=== PATIENT | female | born 1930 | race African-American/Black ===

== ENCOUNTER 2019-11-17 16:17 | Inpatient (IN) | payer MEDICARE, MEDICAID ==
[~2019-11-17] VITALS: Ht 160 cm; Wt 88.0 kg
[~2019-11-17 16:17] MED LIST: ASPI-1158 PO; CLON0.2T PO; DILT240C91 PO; DIOVAN; ESOM40CA PO; HYDR-523 PO; METO100T16 PO; NIFE30TA94 PO; OMEP40CA12 PO; ONDA4TAB5 PO; SUCR1TAB30 PO; TIMO5SOL8 OP; VALS160T28 PO; [UNRECOGNIZED DRUG - REMARK]
[2019-11-17] MEDS ORDERED: BACLOFEN (16:20)
[2019-11-18 00:28] LABS: BASOPHILS % 1.3 % (0.0-2.0); EOSINOPHILS % 0.8 % (0.0-5.0); HEMOGLOBIN. 11.6 g/dL (12.0-16.0); LYMPHOCYTES % 30.3 % (20.0-50.0); MEAN CORPUSCULAR HEMOGLOBIN 29.5 pg (28.0-32.0); MEAN CORPUSCULAR VOLUME 88.9 fL (81.0-99.0); MEAN PLATELET VOLUME 8.4 fl (7.4-10.4); MONOCYTES % 6.9 % (2.0-8.0); NEUTROPHILS % 60.7 % (40.0-76.0); PLATELET 261 x1000/uL (130-400); RED BLOOD CELL COUNT 3.94 mill/uL (4.2-5.4); RED CELL DISTRIBUTION WIDTH 15.6 % (11.6-14.6)
[2019-11-18 00:40] LABS: CHLORIDE 114 mEq/L (98-107)
[2019-11-18 00:51] LABS: CLARITY URINE CLOUDY (CLEAR); COLOR URINE YELLOW (YELLOW); KETONES URINE NEGATIVE (NEGATIVE); LEUKOCYTE ESTERASE URINE 3+ (NEGATIVE); NITRITE URINE POSITIVE (NEGATIVE); OCCULT BLOOD URINE NEGATIVE (NEGATIVE); PH URINE 5.5 (4.5-8.0); PROTEIN URINE NEGATIVE (NEGATIVE); SPECIFIC GRAVITY URINE 1.011 (1.005-1.030); UROBILINOGEN URINE 0.2 E.U./dL (0.2-1.0)
[2019-11-18 00:52] LABS: ETHANOL BLOOD < 10 mg/dL
[2019-11-18 01:06] LABS: *AMPHETAMINES SCREEN URINE NEGATIVE (NEGATIVE); *BARBITURATES SCREEN URINE NEGATIVE (NEGATIVE); *BENZODIAZEPINES SCREEN URINE NEGATIVE (NEGATIVE); *COCAINE SCREEN URINE NEGATIVE (NEGATIVE)
[2019-11-18 01:07] LABS: CANNABINOID URINE SCREEN NEGATIVE (NEGATIVE); METHADONE URINE SCREEN NEGATIVE (NEGATIVE); OPIATES URINE SCREEN NEGATIVE (NEGATIVE); PHENCYCLIDINE URINE SCREEN NEGATIVE (NEGATIVE)
[2019-11-18] MEDS: CEFTRIAXONE 1 G PREMIX 50 ML IV NR ×2 (04:20→04:37)
[2019-11-18] MEDS: SODIUM CHLORIDE 0.9% 1,000 ML IV SCH ×2 (11:42→13:15)
[2019-11-18] MEDS ORDERED: ACETAMINOPHEN 325MG TABLET PO PRN (11:45)
[2019-11-18] MEDS: ASPIRIN 81MG EC TABLET PO SCH (12:00)
[2019-11-18] MEDS ORDERED: AZITHROMYCIN 500 MG in DEXT 5% WATER 250 ML IV SCH (12:00)
[2019-11-18] MEDS ORDERED: DEXTROSE 50% WATER 50ML SYRINGE IV PRN (12:00)
[2019-11-18] MEDS: CLONIDINE 0.2MG TABLET PO SCH ×2 (12:00→17:00)
[2019-11-18] MEDS: SUCRALFATE 1G TABLET PO SCH ×2 (13:00→17:00)
[2019-11-18] MEDS: BLOOD SUGAR DIAGNOSTIC STRIP TEST SCH ×3 (13:15→21:40)
[2019-11-18] MEDS: INSULIN LISPRO 100 UNITS/ML SUBCUT SCH ×3 (13:20→21:00)
[2019-11-18] MEDS ORDERED: hydralazine (15:07)
[2019-11-18] MEDS ORDERED: PANT20TA3 PO (15:07)
[2019-11-18] MEDS ORDERED: OXYB5TAB17 PO (15:07)
[2019-11-18] MEDS ORDERED: LOSA50TA41 PO (15:07)
[2019-11-18] MEDS ORDERED: LIDO35.44 TP (15:07)
[2019-11-18] MEDS ORDERED: DICL100G31 TP (15:07)
[2019-11-18] MEDS ORDERED: CLONIDINE 0.1MG TABLET PO PRN (18:30)
[2019-11-18] MEDS ORDERED: LEVOFLOXACIN 500MG PREMIX 100ML IV NR (19:00)
[2019-11-18 20:00] VITALS: BP 140/72
[2019-11-18] MEDS: HEPARIN 5000 UNITS/ML VIAL SUBCUT SCH (21:38)
[2019-11-18] MEDS: METOPROLOL TARTRATE 100MG TABLET PO SCH (21:39)
[2019-11-18 22:32] VITALS: BP 140/72
[2019-11-19] VITALS (12 sets, daily range): BP systolic 112–194; BP diastolic 42–89
[2019-11-19] MEDS ORDERED: CEFTRIAXONE 1 G PREMIX 50 ML IV SCH (01:00)
[2019-11-19] MEDS: ONDANSETRON HCL 4MG/2ML INJ IV PRN ×2 (03:48→11:16)
[2019-11-19] MEDS: BLOOD SUGAR DIAGNOSTIC STRIP TEST SCH ×4 (06:31→20:57)
[2019-11-19] MEDS: SUCRALFATE 1G TABLET PO SCH ×3 (06:31→16:32)
[2019-11-19 07:05] LABS: BASOPHILS % 0.6 % (0.0-2.0); EOSINOPHILS % 0.5 % (0.0-5.0); HEMATOCRIT. 33.3 % (36.0-48.0); HEMOGLOBIN. 11.2 g/dL (12.0-16.0); LYMPHOCYTES % 26.1 % (20.0-50.0); MEAN CORPUSCULAR HEMOGLOBIN 29.5 pg (28.0-32.0); MEAN CORPUSCULAR VOLUME 87.8 fL (81.0-99.0); MEAN PLATELET VOLUME 7.9 fl (7.4-10.4); MONOCYTES % 5.2 % (2.0-8.0); NEUTROPHILS % 67.6 % (40.0-76.0); PLATELET 271 x1000/uL (130-400); RED BLOOD CELL COUNT 3.79 mill/uL (4.2-5.4); RED CELL DISTRIBUTION WIDTH 15.5 % (11.6-14.6)
[2019-11-19 07:18] LABS: CHLORIDE 109 mEq/L (98-107)
[2019-11-19] MEDS: INSULIN LISPRO 100 UNITS/ML SUBCUT SCH ×4 (07:20→21:00)
[2019-11-19] MEDS: CEFTRIAXONE 1 G PREMIX 50 ML IV SCH (08:36)
[2019-11-19] MEDS: HEPARIN 5000 UNITS/ML VIAL SUBCUT SCH ×2 (08:36→20:57)
[2019-11-19] MEDS: ASPIRIN 81MG EC TABLET PO SCH (08:37)
[2019-11-19] MEDS: METOPROLOL TARTRATE 100MG TABLET PO SCH ×2 (08:37→20:57)
[2019-11-19] MEDS: CLONIDINE 0.2MG TABLET PO SCH ×2 (08:47→16:32)
[2019-11-19 17:38] LABS: CREATINE KINASE 128 IU/L (26-192)
[2019-11-19 18:17] LABS: VITAMIN B12 SERUM 247 pg/mL (211-911)
[2019-11-19 18:20] LABS: FOLIC ACID (FOLATE) SERUM > 20.00 ng/mL (>5.38)
[2019-11-19] MEDS ORDERED: LEVOFLOXACIN 250MG PREMIX 50 ML IV SCH (19:00)
[2019-11-20] VITALS (11 sets, daily range): BP systolic 143–189; BP diastolic 58–93
[2019-11-20] MEDS: SUCRALFATE 1G TABLET PO SCH ×3 (06:25→18:03)
[2019-11-20] MEDS: BLOOD SUGAR DIAGNOSTIC STRIP TEST SCH ×2 (06:26→12:14)
[2019-11-20 06:31] LABS: BASOPHILS % 0.7 % (0.0-2.0); HEMATOCRIT. 33.6 % (36.0-48.0); HEMOGLOBIN. 11.2 g/dL (12.0-16.0); LYMPHOCYTES % 39.6 % (20.0-50.0); MEAN CORPUSCULAR HEMOGLOBIN 29.6 pg (28.0-32.0); MEAN CORPUSCULAR VOLUME 88.8 fL (81.0-99.0); MEAN PLATELET VOLUME 8.2 fl (7.4-10.4); MONOCYTES % 7.3 % (2.0-8.0); NEUTROPHILS % 51.4 % (40.0-76.0); PLATELET 263 x1000/uL (130-400); RED BLOOD CELL COUNT 3.78 mill/uL (4.2-5.4); RED CELL DISTRIBUTION WIDTH 15.6 % (11.6-14.6)
[2019-11-20 06:35] LABS: CHLORIDE 109 mEq/L (98-107)
[2019-11-20] MEDS: INSULIN LISPRO 100 UNITS/ML SUBCUT SCH ×2 (07:20→12:14)
[2019-11-20] MEDS: ONDANSETRON HCL 4MG/2ML INJ IV PRN (09:07)
[2019-11-20] MEDS: HEPARIN 5000 UNITS/ML VIAL SUBCUT SCH (09:10)
[2019-11-20] MEDS: CLONIDINE 0.2MG TABLET PO SCH ×2 (09:11→18:06)
[2019-11-20] MEDS: ASPIRIN 81MG EC TABLET PO SCH (09:11)
[2019-11-20] MEDS: METOPROLOL TARTRATE 100MG TABLET PO SCH ×2 (09:12→21:23)
[2019-11-20] MEDS: CEFTRIAXONE 1 G PREMIX 50 ML IV SCH (09:13)
[2019-11-20] MEDS: AMLODIPINE 10MG TABLET PO SCH (13:00)
[2019-11-20] MEDS: LOSARTAN POTASSIUM 50 MG TABLET PO SCH (13:01)
[2019-11-20] MEDS: GABAPENTIN 100MG CAPSULE PO SCH ×2 (13:06→21:21)
[2019-11-20 16:31] LABS: T4 FREE 1.05 ng/dL (0.76-1.46)
[2019-11-20] MEDS: CYANOCOBALAMIN 1000MCG/ML VIAL IM SCH (17:00)
[2019-11-20] MEDS ORDERED: TRAZODONE HCL 50MG TABLET PO PRN (18:15)
[2019-11-21] VITALS (8 sets, daily range): BP systolic 114–176; BP diastolic 49–70
[2019-11-21] MEDS: GABAPENTIN 100MG CAPSULE PO SCH ×2 (06:26→14:15)
[2019-11-21] MEDS: SUCRALFATE 1G TABLET PO SCH ×4 (06:26→18:00)
[2019-11-21] MEDS: CYANOCOBALAMIN 1000MCG/ML VIAL IM SCH (09:00)
[2019-11-21] MEDS ORDERED: ENOXAPARIN 40MG/0.4ML SYR SUBCUT SCH (09:00)
[2019-11-21] MEDS ORDERED: MULTIVITAMINS,THER W-MINERALS TABLET PO SCH (09:00)
[2019-11-21] MEDS: CLONIDINE 0.2MG TABLET PO SCH ×2 (09:30→17:00)
[2019-11-21] MEDS: LOSARTAN POTASSIUM 50 MG TABLET PO SCH (09:30)
[2019-11-21] MEDS: ASPIRIN 81MG EC TABLET PO SCH (09:31)
[2019-11-21] MEDS: AMLODIPINE 10MG TABLET PO SCH (09:32)
[2019-11-21] MEDS: CEFTRIAXONE 1 G PREMIX 50 ML IV SCH (09:33)
[2019-11-21] MEDS: METOPROLOL TARTRATE 100MG TABLET PO SCH (09:34)
[2019-11-21] MEDS ORDERED: HYDRALAZINE HCL 50MG TABLET PO SCH (14:00)
[2019-11-21 16:24] LABS: BASOPHILS % 1.7 % (0.0-2.0); EOSINOPHILS % 2.2 % (0.0-5.0); HEMATOCRIT. 33.5 % (36.0-48.0); HEMOGLOBIN. 11.3 g/dL (12.0-16.0); LYMPHOCYTES % 37.4 % (20.0-50.0); MEAN CORPUSCULAR HEMOGLOBIN 29.7 pg (28.0-32.0); MEAN CORPUSCULAR VOLUME 88.4 fL (81.0-99.0); MEAN PLATELET VOLUME 8.5 fl (7.4-10.4); NEUTROPHILS % 51.7 % (40.0-76.0); RED BLOOD CELL COUNT 3.79 mill/uL (4.2-5.4); RED CELL DISTRIBUTION WIDTH 15.5 % (11.6-14.6)
[2019-11-21 16:32] LABS: CHLORIDE 108 mEq/L (98-107)
[2019-11-21 17:16] LABS: PLATELET 246 x1000/uL (130-400)
[2019-11-27 04:10] LABS: 25-HYDROXY VITAMIN D3 25 ng/mL (.)
[2019-12-03] MEDS ORDERED: CYANOCOBALAMIN 1000MCG/ML VIAL IM SCH (09:00)
== END 2019-11-21 18:25 | DRG 91 ==
LOC: ER 16:17 → 3WST 11-18 00:34 → EDBEDREQDT 11-18 00:38 → EDBEDREQTM 11-18 00:38 → EDBEDREQ 11-18 00:38 → ENRESERV 11-18 14:10 → CANRESERV 11-18 14:10 → ENRESERV 11-18 15:47 → 6WST 11-21 12:43
PROVIDERS: ADMIT Internal Medicine; ATTEND Internal Medicine
PROC: 4B02XSZ Measurement of Cardiac Pacemaker, External Approach (ICD-10-PCS; principal; 2019-11-19)
DX: G92 Toxic encephalopathy (principal); J18.9 Pneumonia, unspecified organism; G82.50 Quadriplegia, unspecified; N39.0 Urinary tract infection, site not specified; D64.9 Anemia, unspecified; E87.8 Other disorders of electrolyte and fluid balance, not elsewhere classified; Z95.0 Presence of cardiac pacemaker; K21.9 Gastro-esophageal reflux disease without esophagitis; B96.89 Other specified bacterial agents as the cause of diseases classified elsewhere; E11.42 Type 2 diabetes mellitus with diabetic polyneuropathy; G89.29 Other chronic pain; M79.605 Pain in left leg; M48.02 Spinal stenosis, cervical region; R53.81 Other malaise; I11.9 Hypertensive heart disease without heart failure; M79.604 Pain in right leg; Z96.652 Presence of left artificial knee joint; E78.00 Pure hypercholesterolemia, unspecified; I49.5 Sick sinus syndrome; M48.061 Spinal stenosis, lumbar region without neurogenic claudication; E53.8 Deficiency of other specified B group vitamins; Z88.5 Allergy status to narcotic agent; Z79.899 Other long term (current) drug therapy; Z90.710 Acquired absence of both cervix and uterus; Z90.49 Acquired absence of other specified parts of digestive tract; Z88.1 Allergy status to other antibiotic agents
CPT/HCPCS: 36415; 71045; 72128; 72131; 80053; 80305; 80307; 80320; 80329; 81003; 82140; 82306; 82550; 82607; 82746; 82962; 83036; 83605; 83735; 83880; 84439; 84443; 84481; 84484; 85025; 87077; 87186; 92523; 92610; 93005; 93306; 93970; 93971; 97162; 97166; 97530; 97535; 99285; J0456; J0696; J1644; J1956; J2405; J7060; G0480

== ENCOUNTER 2019-11-21 18:30 | Inpatient (IN) | payer MEDICARE, MEDICAID ==
[~2019-11-21] VITALS: Ht 160 cm; Wt 86.2 kg
[~2019-11-21 18:30] MED LIST changes: -ASPI-1158 PO; +BACLOFEN; +DICL100G31 TP; -DILT240C91 PO; -DIOVAN; -ESOM40CA PO; -HYDR-523 PO; +LIDO35.44 TP; +LOSA50TA41 PO; -METO100T16 PO; -OMEP40CA12 PO; -ONDA4TAB5 PO; +OXYB5TAB17 PO; +PANT20TA3 PO; -SUCR1TAB30 PO; -VALS160T28 PO; +hydralazine
[2019-11-21] MEDS ORDERED: CLONIDINE 0.1MG TABLET PO PRN (19:30)
[2019-11-21 20:00] VITALS: BP 130/41
[2019-11-21] MEDS: METOPROLOL TARTRATE 100MG TABLET PO SCH (20:59)
[2019-11-21] MEDS ORDERED: CLONIDINE 0.2MG TABLET PO SCH (21:00)
[2019-11-21] MEDS: GABAPENTIN 100MG CAPSULE PO SCH (21:02)
[2019-11-21] MEDS: HYDRALAZINE HCL 50MG TABLET PO SCH (21:02)
[2019-11-21] MEDS: TRAZODONE HCL 50MG TABLET PO PRN (21:08)
[2019-11-22] MEDS: ACETAMINOPHEN 325MG TABLET PO PRN ×3 (03:58→21:32)
[2019-11-22] MEDS: GABAPENTIN 100MG CAPSULE PO SCH ×3 (06:03→21:32)
[2019-11-22] MEDS: HYDRALAZINE HCL 50MG TABLET PO SCH (06:03)
[2019-11-22 07:17] LABS: BASOPHILS % 1.1 % (0.0-2.0); EOSINOPHILS % 2.9 % (0.0-5.0); HEMATOCRIT. 37.9 % (36.0-48.0); HEMOGLOBIN. 12.7 g/dL (12.0-16.0); LYMPHOCYTES % 38.1 % (20.0-50.0); MEAN CORPUSCULAR HEMOGLOBIN 29.4 pg (28.0-32.0); MEAN PLATELET VOLUME 8.3 fl (7.4-10.4); MONOCYTES % 6.5 % (2.0-8.0); NEUTROPHILS % 51.4 % (40.0-76.0); PLATELET 283 x1000/uL (130-400); RED BLOOD CELL COUNT 4.31 mill/uL (4.2-5.4); RED CELL DISTRIBUTION WIDTH 15.5 % (11.6-14.6)
[2019-11-22 07:23] LABS: CHLORIDE 108 mEq/L (98-107)
[2019-11-22 08:00] VITALS: BP 149/56
[2019-11-22] MEDS: ENOXAPARIN 40MG/0.4ML SYR SUBCUT SCH (08:14)
[2019-11-22] MEDS: CYANOCOBALAMIN 1000MCG TABLET PO SCH (08:15)
[2019-11-22] MEDS: LOSARTAN POTASSIUM 50 MG TABLET PO SCH (08:15)
[2019-11-22] MEDS: MULTIVITAMINS,THER W-MINERALS TABLET PO SCH (08:15)
[2019-11-22] MEDS: AMLODIPINE 10MG TABLET PO SCH (08:15)
[2019-11-22] MEDS: ASPIRIN 81MG EC TABLET PO SCH (08:15)
[2019-11-22] MEDS: SUCRALFATE 1G TABLET PO SCH ×3 (08:16→16:19)
[2019-11-22] MEDS: METOPROLOL TARTRATE 100MG TABLET PO SCH (08:16)
[2019-11-22] MEDS ORDERED: CEFTRIAXONE 1 G PREMIX 50 ML IV SCH (09:00)
[2019-11-22] MEDS ORDERED: CLONIDINE 0.2MG TABLET PO SCH (09:00)
[2019-11-22 10:18] VITALS: BP_SYST 124; BP_SYST 149; BP_SYST 82; BP_DIAS 40; BP_DIAS 56; BP_DIAS 57
[2019-11-22] MEDS ORDERED: SODIUM CHLORIDE 0.9% 200 ML IV NR (10:30)
[2019-11-22 10:45] VITALS: BP_SYST 69; BP_SYST 72; BP_SYST 79; BP_DIAS 39; BP_DIAS 43
[2019-11-22 11:08] VITALS: BP 112/58
[2019-11-22] MEDS ORDERED: GABAPENTIN 100MG CAPSULE PO SCH (14:00)
[2019-11-22] MEDS ORDERED: GABAPENTIN 100MG CAPSULE PO NR (14:21)
[2019-11-22] MEDS: MEROPENEM 500 MG in SODIUM CHLORIDE 0.9% 50 ML IV SCH (14:55)
[2019-11-22] MEDS: CLONIDINE 0.1MG TABLET PO SCH (16:19)
[2019-11-22] MEDS: METOPROLOL TARTRATE 50MG TABLET PO SCH (21:27)
[2019-11-22] MEDS: TRAZODONE HCL 50MG TABLET PO PRN (21:33)
[2019-11-22 21:59] VITALS: BP 164/56
[2019-11-22] MEDS: TIMOLOL MALEATE 0.5% OPHTH DROPS 5ML EACHEYE SCH (22:35)
[2019-11-23] MEDS: MEROPENEM 500 MG in SODIUM CHLORIDE 0.9% 50 ML IV SCH ×2 (01:34→14:08)
[2019-11-23] MEDS: GABAPENTIN 100MG CAPSULE PO SCH ×3 (05:45→22:10)
[2019-11-23] MEDS: ACETAMINOPHEN 325MG TABLET PO PRN (05:56)
[2019-11-23 06:48] LABS: CHLORIDE 110 mEq/L (98-107)
[2019-11-23 06:51] LABS: BASOPHILS % 1.2 % (0.0-2.0); EOSINOPHILS % 3.3 % (0.0-5.0); HEMATOCRIT. 35.6 % (36.0-48.0); HEMOGLOBIN. 11.9 g/dL (12.0-16.0); LYMPHOCYTES % 37.9 % (20.0-50.0); MEAN CORPUSCULAR HEMOGLOBIN 29.3 pg (28.0-32.0); MEAN CORPUSCULAR VOLUME 87.6 fL (81.0-99.0); MEAN PLATELET VOLUME 8.5 fl (7.4-10.4); MONOCYTES % 7.7 % (2.0-8.0); NEUTROPHILS % 49.9 % (40.0-76.0); PLATELET 293 x1000/uL (130-400); RED BLOOD CELL COUNT 4.07 mill/uL (4.2-5.4); RED CELL DISTRIBUTION WIDTH 15.6 % (11.6-14.6)
[2019-11-23 06:56] LABS: PHOSPHORUS 4.2 mg/dL (2.5-4.9)
[2019-11-23 06:57] LABS: TOTAL IRON BINDING CAPACITY 255 ug/dL (250-450)
[2019-11-23 07:07] LABS: FERRITIN 216 ng/mL (10-291)
[2019-11-23 07:08] LABS: FOLIC ACID (FOLATE) SERUM >20 ng/mL ng/mL (>5.38)
[2019-11-23 07:20] LABS: VITAMIN B12 SERUM 463 pg/mL (211-911)
[2019-11-23 08:00] VITALS: BP 159/57
[2019-11-23] MEDS: CLONIDINE 0.1MG TABLET PO SCH ×2 (09:34→16:16)
[2019-11-23] MEDS: SUCRALFATE 1G TABLET PO SCH ×3 (09:34→16:16)
[2019-11-23] MEDS: CYANOCOBALAMIN 1000MCG TABLET PO SCH (09:34)
[2019-11-23] MEDS: ENOXAPARIN 40MG/0.4ML SYR SUBCUT SCH (09:35)
[2019-11-23] MEDS: METOPROLOL TARTRATE 50MG TABLET PO SCH (09:35)
[2019-11-23] MEDS: ASPIRIN 81MG EC TABLET PO SCH (09:35)
[2019-11-23] MEDS: MULTIVITAMINS,THER W-MINERALS TABLET PO SCH (09:35)
[2019-11-23] MEDS: LOSARTAN POTASSIUM 50 MG TABLET PO SCH (09:35)
[2019-11-23] MEDS: AMLODIPINE 10MG TABLET PO SCH (09:35)
[2019-11-23] MEDS: TIMOLOL MALEATE 0.5% OPHTH DROPS 5ML EACHEYE SCH ×2 (09:39→22:11)
[2019-11-23 14:15] VITALS: BP 146/57
[2019-11-23] MEDS: TRAMADOL 50MG TABLET PO PRN (16:16)
[2019-11-23 20:00] VITALS: BP 172/64
[2019-11-23] MEDS: HYDRALAZINE HCL 50MG TABLET PO SCH (22:10)
[2019-11-23] MEDS: METOPROLOL TARTRATE 25MG TABLET PO SCH (22:11)
[2019-11-24] MEDS: TRAZODONE HCL 50MG TABLET PO PRN (00:09)
[2019-11-24] MEDS: MEROPENEM 500 MG in SODIUM CHLORIDE 0.9% 50 ML IV SCH ×2 (02:28→15:38)
[2019-11-24] MEDS: ACETAMINOPHEN 325MG TABLET PO PRN ×3 (03:12→17:38)
[2019-11-24] MEDS: HYDRALAZINE HCL 50MG TABLET PO SCH ×3 (06:00→22:00)
[2019-11-24] MEDS: GABAPENTIN 100MG CAPSULE PO SCH ×3 (06:38→22:16)
[2019-11-24 08:00] VITALS: BP 142/60
[2019-11-24] MEDS: ENOXAPARIN 40MG/0.4ML SYR SUBCUT SCH (08:58)
[2019-11-24] MEDS: CYANOCOBALAMIN 1000MCG/ML VIAL IM SCH (08:58)
[2019-11-24] MEDS: AMLODIPINE 10MG TABLET PO SCH (08:59)
[2019-11-24] MEDS: SUCRALFATE 1G TABLET PO SCH ×3 (08:59→17:00)
[2019-11-24] MEDS: CLONIDINE 0.1MG TABLET PO SCH ×2 (08:59→17:00)
[2019-11-24] MEDS: METOPROLOL TARTRATE 25MG TABLET PO SCH ×2 (08:59→20:55)
[2019-11-24] MEDS: MULTIVITAMINS,THER W-MINERALS TABLET PO SCH (08:59)
[2019-11-24] MEDS: LOSARTAN POTASSIUM 50 MG TABLET PO SCH (08:59)
[2019-11-24] MEDS: ASPIRIN 81MG EC TABLET PO SCH (08:59)
[2019-11-24] MEDS: TIMOLOL MALEATE 0.5% OPHTH DROPS 5ML EACHEYE SCH ×2 (09:00→21:00)
[2019-11-24] MEDS: ONDANSETRON HCL 4MG/2ML INJ IV PRN (12:10)
[2019-11-24] MEDS ORDERED: IPRATROPIUM/ALBUTEROL 0.5-3(2.5)MG/3ML NEB HHN PRN (16:45)
[2019-11-24 20:00] VITALS: BP_SYST 131; BP_SYST 143; BP_DIAS 59; BP_DIAS 66
[2019-11-24] MEDS: TRAZODONE HCL 50MG TABLET PO SCH (20:56)
[2019-11-25] MEDS: MEROPENEM 500 MG in SODIUM CHLORIDE 0.9% 50 ML IV SCH ×2 (02:26→13:37)
[2019-11-25] MEDS: GABAPENTIN 100MG CAPSULE PO SCH ×3 (05:41→21:30)
[2019-11-25] MEDS: HYDRALAZINE HCL 50MG TABLET PO SCH ×3 (05:46→21:30)
[2019-11-25 06:46] LABS: CHLORIDE 110 mEq/L (98-107)
[2019-11-25 06:51] LABS: EOSINOPHILS % 1.9 % (0.0-5.0); HEMATOCRIT. 32.1 % (36.0-48.0); HEMOGLOBIN. 10.7 g/dL (12.0-16.0); LYMPHOCYTES % 39.2 % (20.0-50.0); MEAN CORPUSCULAR HEMOGLOBIN 29.6 pg (28.0-32.0); MEAN CORPUSCULAR VOLUME 88.6 fL (81.0-99.0); MEAN PLATELET VOLUME 8.1 fl (7.4-10.4); MONOCYTES % 8.2 % (2.0-8.0); NEUTROPHILS % 49.7 % (40.0-76.0); PLATELET 243 x1000/uL (130-400); RED BLOOD CELL COUNT 3.62 mill/uL (4.2-5.4); RED CELL DISTRIBUTION WIDTH 15.5 % (11.6-14.6)
[2019-11-25] MEDS: METOPROLOL TARTRATE 25MG TABLET PO SCH ×2 (08:01→21:29)
[2019-11-25] MEDS: ASPIRIN 81MG EC TABLET PO SCH (08:01)
[2019-11-25] MEDS: LOSARTAN POTASSIUM 50 MG TABLET PO SCH (08:01)
[2019-11-25] MEDS: MULTIVITAMINS,THER W-MINERALS TABLET PO SCH (08:01)
[2019-11-25] MEDS: AMLODIPINE 10MG TABLET PO SCH (08:02)
[2019-11-25] MEDS: CLONIDINE 0.1MG TABLET PO SCH ×2 (08:02→17:18)
[2019-11-25] MEDS: CYANOCOBALAMIN 1000MCG/ML VIAL IM SCH (08:02)
[2019-11-25] MEDS: SUCRALFATE 1G TABLET PO SCH ×3 (08:02→16:28)
[2019-11-25] MEDS: ENOXAPARIN 40MG/0.4ML SYR SUBCUT SCH (08:02)
[2019-11-25] MEDS: TIMOLOL MALEATE 0.5% OPHTH DROPS 5ML EACHEYE SCH ×2 (08:03→21:31)
[2019-11-25 08:15] VITALS: BP 156/56
[2019-11-25 09:00] VITALS: BP_SYST 135; BP_SYST 137; BP_SYST 146; BP_DIAS 55; BP_DIAS 60; BP_DIAS 62
[2019-11-25] MEDS: TRAMADOL 50MG TABLET PO PRN (16:29)
[2019-11-25 20:00] VITALS: BP 126/50
[2019-11-25] MEDS: TRAZODONE HCL 50MG TABLET PO SCH (21:29)
[2019-11-26] MEDS: MEROPENEM 500 MG in SODIUM CHLORIDE 0.9% 50 ML IV SCH ×2 (03:05→13:06)
[2019-11-26] MEDS: TRAMADOL 50MG TABLET PO PRN (03:06)
[2019-11-26] MEDS: GABAPENTIN 100MG CAPSULE PO SCH ×2 (06:15→13:05)
[2019-11-26] MEDS: ACETAMINOPHEN 325MG TABLET PO PRN (06:15)
[2019-11-26] MEDS: HYDRALAZINE HCL 50MG TABLET PO SCH ×3 (06:16→21:10)
[2019-11-26 08:00] VITALS: BP 124/47
[2019-11-26] MEDS: TIMOLOL MALEATE 0.5% OPHTH DROPS 5ML EACHEYE SCH ×2 (08:11→21:10)
[2019-11-26] MEDS: LOSARTAN POTASSIUM 50 MG TABLET PO SCH (08:11)
[2019-11-26] MEDS: MULTIVITAMINS,THER W-MINERALS TABLET PO SCH (08:11)
[2019-11-26] MEDS: SUCRALFATE 1G TABLET PO SCH ×3 (08:11→17:23)
[2019-11-26] MEDS: ASPIRIN 81MG EC TABLET PO SCH (08:12)
[2019-11-26] MEDS: CLONIDINE 0.1MG TABLET PO SCH ×2 (08:12→17:23)
[2019-11-26] MEDS: AMLODIPINE 10MG TABLET PO SCH (08:12)
[2019-11-26] MEDS: CYANOCOBALAMIN 1000MCG/ML VIAL IM SCH (08:12)
[2019-11-26] MEDS: METOPROLOL TARTRATE 25MG TABLET PO SCH ×2 (08:12→21:10)
[2019-11-26] MEDS: ENOXAPARIN 40MG/0.4ML SYR SUBCUT SCH (08:13)
[2019-11-26] MEDS: ONDANSETRON HCL 4MG/2ML INJ IV PRN (09:34)
[2019-11-26 20:00] VITALS: BP 136/49
[2019-11-26] MEDS: TRAZODONE HCL 50MG TABLET PO PRN (21:09)
[2019-11-27] MEDS: TRAMADOL 50MG TABLET PO PRN (02:28)
[2019-11-27] MEDS: ACETAMINOPHEN 325MG TABLET PO PRN ×3 (04:49→23:02)
[2019-11-27 06:31] LABS: CHLORIDE 109 mEq/L (98-107)
[2019-11-27 06:33] LABS: BASOPHILS % 0.7 % (0.0-2.0); EOSINOPHILS % 2.5 % (0.0-5.0); HEMATOCRIT. 30.8 % (36.0-48.0); HEMOGLOBIN. 10.3 g/dL (12.0-16.0); LYMPHOCYTES % 30.6 % (20.0-50.0); MEAN CORPUSCULAR HEMOGLOBIN 29.7 pg (28.0-32.0); MEAN CORPUSCULAR VOLUME 88.5 fL (81.0-99.0); MEAN PLATELET VOLUME 7.9 fl (7.4-10.4); MONOCYTES % 7.5 % (2.0-8.0); NEUTROPHILS % 58.7 % (40.0-76.0); PLATELET 254 x1000/uL (130-400); RED BLOOD CELL COUNT 3.48 mill/uL (4.2-5.4); RED CELL DISTRIBUTION WIDTH 15.9 % (11.6-14.6)
[2019-11-27] MEDS: HYDRALAZINE HCL 50MG TABLET PO SCH ×3 (06:33→21:16)
[2019-11-27 08:14] VITALS: BP 114/41
[2019-11-27] MEDS: AMLODIPINE 10MG TABLET PO SCH (09:00)
[2019-11-27] MEDS: CLONIDINE 0.1MG TABLET PO SCH (09:00)
[2019-11-27] MEDS: METOPROLOL TARTRATE 25MG TABLET PO SCH ×2 (09:00→21:16)
[2019-11-27] MEDS: SUCRALFATE 1G TABLET PO SCH ×3 (10:43→17:12)
[2019-11-27] MEDS: CYANOCOBALAMIN 1000MCG/ML VIAL IM SCH (10:43)
[2019-11-27] MEDS: TIMOLOL MALEATE 0.5% OPHTH DROPS 5ML EACHEYE SCH ×2 (10:43→21:15)
[2019-11-27] MEDS: ASPIRIN 81MG EC TABLET PO SCH (10:44)
[2019-11-27] MEDS: MULTIVITAMINS,THER W-MINERALS TABLET PO SCH (10:44)
[2019-11-27] MEDS: LOSARTAN POTASSIUM 50 MG TABLET PO SCH (10:44)
[2019-11-27] MEDS: ENOXAPARIN 40MG/0.4ML SYR SUBCUT SCH (10:45)
[2019-11-27 20:00] VITALS: BP 159/48
[2019-11-28] MEDS: TRAMADOL 50MG TABLET PO PRN (00:29)
[2019-11-28] MEDS: HYDRALAZINE HCL 50MG TABLET PO SCH ×3 (05:20→21:03)
[2019-11-28 08:23] VITALS: BP_SYST 154
[2019-11-28] MEDS ORDERED: ONDANSETRON 4MG ODT PO PRN (08:30)
[2019-11-28] MEDS: ENOXAPARIN 40MG/0.4ML SYR SUBCUT SCH (11:29)
[2019-11-28] MEDS: MULTIVITAMINS,THER W-MINERALS TABLET PO SCH (11:34)
[2019-11-28] MEDS: ASPIRIN 81MG EC TABLET PO SCH (11:34)
[2019-11-28] MEDS: SUCRALFATE 1G TABLET PO SCH ×3 (11:34→18:35)
[2019-11-28] MEDS: LOSARTAN POTASSIUM 50 MG TABLET PO SCH (11:35)
[2019-11-28] MEDS: AMLODIPINE 10MG TABLET PO SCH (11:36)
[2019-11-28] MEDS: METOPROLOL TARTRATE 25MG TABLET PO SCH ×2 (11:37→21:02)
[2019-11-28] MEDS: CYANOCOBALAMIN 1000MCG/ML VIAL IM SCH (11:48)
[2019-11-28] MEDS: TIMOLOL MALEATE 0.5% OPHTH DROPS 5ML EACHEYE SCH ×2 (11:49→21:02)
[2019-11-28] MEDS ORDERED: ACETAMINOPHEN 500MG TABLET PO PRN (16:45)
[2019-11-28 20:00] VITALS: BP 166/58
[2019-11-28 21:05] VITALS: BP 141/56
[2019-11-28] MEDS ORDERED: TRAMADOL 50MG TABLET PO PRN (22:15)
[2019-11-28] MEDS: TRAZODONE HCL 50MG TABLET PO PRN (22:39)
[2019-11-29 04:10] LABS: 25-HYDROXY VITAMIN D3 26 ng/mL (.)
[2019-11-29] MEDS: HYDRALAZINE HCL 50MG TABLET PO SCH (05:37)
[2019-11-29 06:32] LABS: BASOPHILS % 1.1 % (0.0-2.0); EOSINOPHILS % 0.9 % (0.0-5.0); HEMATOCRIT. 32.6 % (36.0-48.0); HEMOGLOBIN. 10.8 g/dL (12.0-16.0); LYMPHOCYTES % 29.8 % (20.0-50.0); MEAN CORPUSCULAR HEMOGLOBIN 29.6 pg (28.0-32.0); MONOCYTES % 7.7 % (2.0-8.0); NEUTROPHILS % 60.5 % (40.0-76.0); RED BLOOD CELL COUNT 3.66 mill/uL (4.2-5.4); RED CELL DISTRIBUTION WIDTH 15.8 % (11.6-14.6)
[2019-11-29 06:38] LABS: CHLORIDE 109 mEq/L (98-107)
[2019-11-29] MEDS: ASPIRIN 81MG EC TABLET PO SCH (08:16)
[2019-11-29] MEDS: MULTIVITAMINS,THER W-MINERALS TABLET PO SCH (08:16)
[2019-11-29] MEDS: METOPROLOL TARTRATE 25MG TABLET PO SCH (08:16)
[2019-11-29] MEDS: AMLODIPINE 10MG TABLET PO SCH (08:17)
[2019-11-29] MEDS: SUCRALFATE 1G TABLET PO SCH (08:17)
[2019-11-29] MEDS: TIMOLOL MALEATE 0.5% OPHTH DROPS 5ML EACHEYE SCH (08:17)
[2019-11-29] MEDS: LOSARTAN POTASSIUM 50 MG TABLET PO SCH (08:17)
[2019-11-29] MEDS: ENOXAPARIN 40MG/0.4ML SYR SUBCUT SCH (08:21)
[2019-11-29 08:30] VITALS: BP 138/52
[2019-11-29] MEDS ORDERED: CYANOCOBALAMIN 1000MCG/ML VIAL IM SCH (09:00)
[2019-11-29 10:03] VITALS: BP 138/52
[2019-11-29 10:06] LABS: PLATELET 287 x1000/uL (130-400)
== END 2019-11-29 13:00 | disposition left against medical advice (07) | DRG 91 ==
PROVIDERS: ADMIT Physical Medicine & Rehabilitation Spinal Cord Injury Medicine; ATTEND Internal Medicine
DX: G92 Toxic encephalopathy (principal); G82.50 Quadriplegia, unspecified; J15.5 Pneumonia due to Escherichia coli; J98.11 Atelectasis; N39.0 Urinary tract infection, site not specified; Z16.12 Extended spectrum beta lactamase (ESBL) resistance; D64.9 Anemia, unspecified; B96.20 Unspecified Escherichia coli [E. coli] as the cause of diseases classified elsewhere; I10 Essential (primary) hypertension; E87.8 Other disorders of electrolyte and fluid balance, not elsewhere classified; I34.0 Nonrheumatic mitral (valve) insufficiency; I95.1 Orthostatic hypotension; K21.9 Gastro-esophageal reflux disease without esophagitis; E11.42 Type 2 diabetes mellitus with diabetic polyneuropathy; M43.16 Spondylolisthesis, lumbar region; M48.02 Spinal stenosis, cervical region; M48.061 Spinal stenosis, lumbar region without neurogenic claudication; M47.9 Spondylosis, unspecified; E78.00 Pure hypercholesterolemia, unspecified; G47.00 Insomnia, unspecified; I49.5 Sick sinus syndrome; M19.041 Primary osteoarthritis, right hand; M19.042 Primary osteoarthritis, left hand; M47.816 Spondylosis without myelopathy or radiculopathy, lumbar region; M51.36 Other intervertebral disc degeneration, lumbar region; Z96.652 Presence of left artificial knee joint; Z60.2 Problems related to living alone; G89.29 Other chronic pain; Z88.5 Allergy status to narcotic agent; Z88.8 Allergy status to other drugs, medicaments and biological substances; Z90.710 Acquired absence of both cervix and uterus; Z95.0 Presence of cardiac pacemaker; Z90.49 Acquired absence of other specified parts of digestive tract; Z87.891 Personal history of nicotine dependence
CPT/HCPCS: 36415; 73120; 80048; 80053; 82140; 82306; 82607; 82728; 82746; 83540; 83550; 83735; 84100; 84134; 84443; 85025; 92523; 93970; 97110; 97116; 97162; 97166; 97530; 97535; J0696; J1650; J2185; J2405; J3420; Q0162